=== PATIENT | male | born 1960 | race Caucasian/White ===

== ENCOUNTER 2020-07-03 12:00 | Emergency (ER) | payer BC ==
[~2020-07-03] VITALS: Ht 185.4 cm; Wt 90.7 kg
[2020-07-03 12:38] VITALS: BP 159/78
[2020-07-03 12:41] VITALS: BP 159/78
--- NOTE | 2020-07-03 12:42 | NUR ---
ARRIVAL PATIENT ARRIVED TO [facility]BULAT[facility], C/O OF LEFT MIDDLE FINGER INJURY TODAY, PATIENT STATES HE WAS WORKING AND CUT IS FINGER, DID GET A TETANUS RECENTLY, CAME TO THE ED FOR EVAL BY EDP.
--- NOTE | 2020-07-03 13:24 | ER.PDOC ---
General Chief Complaint: Extremities Stated Complaint: FINGER LAC Time seen by MD: 13:17 Source: patient Exam Limitations: no limitations History of Present Illness Initial Comments Patient accidentally caught his left middle finger (pad/distal end) in a hedge- [place], causing multiple lacerations Occurred: just prior to arrival Where: home Severity: moderate Context: laceration Location of Injury: (L) fingers (middle finger) Allergies: Coded Allergies: No Known Allergies (Unverified , 07/03/20) Past Medical History Medical History: hypertension Surgical History: no surgical history Family History Significant Family History: no pertinent family hx Social History Smoking: non-smoker Alcohol Use: occassionally Drug Use: none Review of Systems Constitutional: no symptoms reported EENTM: no symptoms reported Respiratory: no symptoms reported Cardiovascular: no symptoms reported Gastrointestinal: no symptoms reported Genitourinary: no symptoms reported Musculoskeletal: see HPI Skin: see HPI Psychiatric/Neurological: no symptoms reported All Other Systems: Reviewed and Negative Physical Exam General Appearance: Alert, No Apparent Distress Hand: see diagram, tenderness Wrist: nml inspection, non-tender, nml ROM 1 - lac 2 - lac 3 - flap lac 4 - flap lac Neuro: sensation nml, motor nml Vascular: no vascular compromise Tendons: tendon function nml Forearm/Elbow/Arm: uninjured above wrist Skin: warm/dry Head/ENT: nml inspection Neck/Back: nml inspection, non-tender Resp/CVS: no resp distress, lungs clear, heart sounds nml, reg. rate & rhythm Abdomen: non-tender ED LACERATION WOUND REPAIR # of Wounds/Lacerations Presen: 3 Wound Location & Length (Requi: 2 straight lacs + 1 flap lac 6 cm total Wound Length (cm): 6 Anesthesia type: digital block Anesthesia: 1% Lidocaine Volume Anesthetic (ccs): 3 Wound's Depth, Shape: linear, flap Irrigated w/ Saline (ccs): 10 Wound Explored: clean Tendon Intact: Yes Wound Repaired With: sutures Suture Size/Type: 5:0, ethilon Suture Style: interupted Number of Sutures: 10 Layer Closure?: No Retention sutures placed: No Sterile Dressing Applied?: Yes Sling Applied?: No Results/Orders Results/Orders Vital Signs Date Time Temp Pulse Resp B/P (MAP) Pulse Ox O2 Delivery O2 Flow Rate FiO2 07/03/20 12:41 98.4 97 18 159/78 (105) 98 Room Air 07/03/20 12:38 98.4 97 18 98 07/03/20 12:38 98.4 97 18 07/03/20 12:38 98.4 97 18 159/78 (105) 98 Room Air ER DEPART Departure Time of Disposition: 14:29 Disposition: 01 HOME, SELF-CARE Impression: Primary Impression: Laceration of finger of left hand Condition: Improved Patient Instructions: Fingertip Laceration Additional Instructions: Keep wound clean and dry. Apply triple antibiotic ointment daily. Sutures out in 10 days. Return to ER if you develop any signs of infection. Take antibiotics as prescribed until all gone. Return to ER for any emergent concerns. Duration or Time Spent with Pa: 45 min Problem Qualifiers Primary Impression: Laceration of finger of left hand Encounter type: initial encounter Finger: middle finger Damage to nail status: without damage Foreign body presence: without foreign body Qualified Codes: S61.213A - Laceration without foreign body of left middle finger without damage to nail, initial encounter DANA WHALEN DO Jul 03, 2020 13:24
[2020-07-03] MEDS ORDERED: TRIPLE ANTIBIOTIC OINTMENT TP ONE (14:26)
== END 2020-07-03 14:37 | disposition home or self-care (01) ==
LOC: ER 12:00
DX: S61.213A Laceration without foreign body of left middle finger without damage to nail, initial encounter (principal); I10 Essential (primary) hypertension; W22.8XXA Striking against or struck by other objects, initial encounter; Y93.89 Activity, other specified; Y92.098 Other place in other non-institutional residence as the place of occurrence of the external cause; Y99.8 Other external cause status
CPT/HCPCS: 12002; 99283